=== PATIENT | female | born 1955 | race African-American/Black ===

== ENCOUNTER 2017-05-08 03:28 | Emergency (ER) | payer BC, OTHER ==
[2017-05-08] MEDS ORDERED: ASPIRIN 81 MG TABLET, CHEWABLE PO ONE (03:56)
--- NOTE | 2017-05-08 04:32 | RADIOLOGY REPORT (SQ) ---
EXAM DESCRIPTION: CHEST SINGLE VIEW CLINICAL HISTORY: chest pain COMPARISON: 08/12/2013 FINDINGS: Single frontal view of the chest. The cardiomediastinal silhouette has normal size and contour. No consolidation, pneumothorax, or pleural effusion. No displaced rib fractures identified. Upper abdominal soft tissues are unremarkable. IMPRESSION: 1. No acute pulmonary process identified.
[2017-05-08 04:34] LABS: ABSOLUTE LYMPHOCYTES (AUTO) 1.2 10^3/uL (0.5-4.7); ABSOLUTE MONOCYTES (AUTO) 0.3 10^3/uL (0.1-1.4); ABSOLUTE NEUT (AUTO) 2.1 10^3/uL (1.7-8.2); BASOPHILS % (AUTO) 0.2 % (0-2); EOSINOPHILS % (AUTO) 0.4 % (0-6); HEMATOCRIT 40.7 % (36.0-47.0); HEMOGLOBIN 13.5 g/dL (12.0-15.5); LYMPHOCYTES % (AUTO) 32.3 % (13-45); MEAN CORPUSCULAR HEMOGLOBIN 29.2 pg (27.0-33.4); MEAN CORPUSCULAR HGB CONC 33.2 g/dL (32.0-36.0); MEAN CORPUSCULAR VOLUME 88 fl (80-97); PLATELET COUNT 132 10^3/uL (150-450); RED BLOOD COUNT 4.63 10^6/uL (3.72-5.28); RED CELL DISTRIBUTION WIDTH 14.8 % (11.5-14.0); SEGMENTED NEUTROPHILS % (AUTO) 58.1 % (42-78); TOTAL CELLS COUNTED % (AUTO) 100 %; WHITE BLOOD COUNT 3.7 10^3/uL (4.0-10.5)
[2017-05-08 04:50] LABS: ALANINE AMINOTRANSFERASE 45 U/L (9-52); ALBUMIN 4.4 g/dL (3.5-5.0); ALKALINE PHOSPHATASE 54 U/L (38-126); ANION GAP 10 (5-19); ASPARTATE AMINO TRANSFERASE 30 U/L (14-36); BILIRUBIN,DIRECT 0.1 mg/dL (0.0-0.4); BILIRUBIN,TOTAL 0.7 mg/dL (0.2-1.3); BLOOD UREA NITROGEN 17 mg/dL (7-20); CALCIUM 9.7 mg/dL (8.4-10.2); CARBON DIOXIDE 25 mmol/L (22-30); CHLORIDE 106 mmol/L (98-107); CREATINE KINASE 73 U/L (30-135); GLUCOSE 81 mg/dL (75-110); SODIUM 141.4 mmol/L (137-145)
[2017-05-08 05:03] LABS: TROPONIN I < 0.012 ng/mL
--- NOTE | 2017-05-08 07:58 | ER Document Report ---
ED General - General Chief Complaint: Chest Pain Stated Complaint: CHEST PAIN Time Seen by Provider: 05/08/17 07:28 TRAVEL OUTSIDE OF THE [place] IN LAST 30 DAYS: No - HPI Patient complains to provider of: Palpitations chest heaviness Notes: Patient coming in for the above-stated symptoms. Patient has a history of atrial fibrillation. Patient states she is currently not on any anticoagulation or antiarrhythmics. Patient states since her last hospitalization when she was found to be A. fib RVR has not had any other issues. Patient states tonight have a elevated heartbeat with chest pressure mild sob with these symptoms last for ~30MIN. Patient states this occurred around 8 or 9:00. Patient denies any fevers chills nausea vomiting diarrhea. Upon my evaluation patient has been resting the ER for approximately 6-8 hours patient states that she has not had any further recurrences of the palpitations. Denies any recent travel shortness of breath with the symptoms. - Related Data Allergies/Adverse Reactions: No Known Allergies Allergy (Verified 11/24/11 18:18) Past Medical History - Social History Smoking Status: Unknown if Ever Smoked Family History: CAD, CVA, DM, Hyperlipidemia, Hypertension, Malignancy Patient has suicidal ideation: No Patient has homicidal ideation: No - Past Medical History Cardiac Medical History: Denies: Hx Atrial Fibrillation, Hx Congestive Heart Failure, Hx Coronary Artery Disease, Hx Heart Attack, Hx Hypercholesterolemia, Hx Hypertension, Hx Peripheral Vascular Disease, Hx Heart Murmur Pulmonary Medical History: Reports: Hx Pneumonia Denies: Hx Tuberculosis Neurological Medical History: Denies: Hx Cerebrovascular Accident, Hx Seizures Renal/ Medical History: Denies: Hx Peritoneal Dialysis Musculoskeltal Medical History: Denies Hx Multiple Sclerosis Psychiatric Medical History: Denies: Hx Dementia Past Surgical History: Reports: Hx Hysterectomy - partial 2004. Denies: Hx Pacemaker - Immunizations Hx Diphtheria, Pertussis, Tetanus Vaccination: No - unk date Review of Systems - Review of Systems Constitutional: No symptoms reported EENT: No symptoms reported Cardiovascular: Palpitations Respiratory: No symptoms reported Gastrointestinal: No symptoms reported Genitourinary: No symptoms reported Female Genitourinary: No symptoms reported Musculoskeletal: No symptoms reported Skin: No symptoms reported Hematologic/Lymphatic: No symptoms reported Neurological/Psychological: No symptoms reported -: Yes All other systems reviewed and negative Physical Exam - Vital signs Vitals: Resp 14 05/08/17 06:09 Interpretation: Normal - General General appearance: Appears well, Alert - HEENT Head: Normocephalic, Atraumatic Eyes: Normal Pupils: PERRL - Respiratory Respiratory status: No respiratory distress Chest status: Nontender Breath sounds: Normal Chest palpation: Normal - Cardiovascular Rhythm: Regular Heart sounds: Normal auscultation Murmur: No - Abdominal Inspection: Normal Distension: No distension Bowel sounds: Normal Tenderness: Nontender Organomegaly: No organomegaly - Back Back: Normal, Nontender - Extremities General upper extremity: Normal inspection, Nontender, Normal color, Normal ROM , Normal temperature General lower extremity: Normal inspection, Nontender, Normal color, Normal ROM , Normal temperature, Normal weight bearing. No: Александр's sign - Neurological Neuro grossly intact: Yes Cognition: Normal Orientation: AAOx4 Marilia Coma Scale Eye Opening: Spontaneous Marilia Coma Scale Verbal: Oriented Marilia Coma Scale Motor: Obeys Commands Marilia Coma Scale Total: 15 Speech: Normal Motor strength normal: LUE, RUE, LLE, RLE Sensory: Normal - Psychological Associated symptoms: Normal affect, Normal mood - Skin Skin Temperature: Warm Skin Moisture: Dry Skin Color: Normal Course - Re-evaluation Re-evalutation: 05/10/17 23:52 The patient has chest pressure with palpitations as the patient's chest pressure is not suggestive of pulmonary embolus, cardiac ischemia, aortic dissection, or other serious etiology. Given the extremely low risk of these diagnoses further testing and evaluation for these possibilities does not appear to be indicated at this time. The patient has been instructed to return if the symptoms worsen or change in any way. Patient was educated about paroxysmal atrial fibrillation. Recommend patient continue with aspirin therapy and follow-up with 1 of her local canvas marker for more likely a Holter monitor. At this time vital signs stable patient is to be a good candidate for outpatient follow-up. - Vital Signs Vital signs: Temp Pulse Resp BP Pulse Ox 97.9 F 11 L 116/79 100 05/08/17 08:01 05/08/17 08:01 05/08/17 08:00 05/08/17 08:01 - Laboratory Result Diagrams: 05/08/17 04:14 05/08/17 04:14 Laboratory results interpreted by me: 05/08/17 04:14 WBC 3.7 L RDW 14.8 H Plt Count 132 L Discharge - Discharge Clinical Impression: Rapid heart rate Dyspnea Qualifiers: Dyspnea type: unspecified Qualified Code(s): R06.00 - Dyspnea, unspecified Condition: Good Disposition: HOME, SELF-CARE Instructions: Chest Pain of Unclear Cause ([facility]), Palpitations (Irregular or Rapid Heartrate) ([facility]) Additional Instructions: Your chest x-ray EKG and laboratory findings today do not show a clear cause of why he had a rapid heart rate with shortness of breath tonight. Your vital signs at this time are stable. With your history of atrial fibrillation will be concerned she may be having intermittent episodes of atrial fibrillation or cardiac arrhythmia causing her symptoms tonight. I would highly recommend she follow-up with your primary care physician for referral to a canvas marker for possible Holter monitoring. Otherwise please avoid any statements such as caffeine or medications. Return to ER symptoms worsen. Referrals: NICKY BLANCO MD [Primary Care Provider] - Follow up in 3-5 days
[2017-05-08 08:55] VITALS: BP 116/79
--- NOTE | 2017-05-08 09:22 | EKG REPORT ---
SEVERITY:- BORDERLINE ECG - SINUS RHYTHM PROBABLE LEFT ATRIAL ABNORMALITY : Confirmed by: Purvi Tran 08-May-2017 09:21:17
== END 2017-05-08 08:55 | disposition home or self-care (01) ==
LOC: ER 03:28
DX: R00.2 Palpitations (principal); R06.00 Dyspnea, unspecified; R07.9 Chest pain, unspecified; I48.91 Unspecified atrial fibrillation
CPT/HCPCS: 36415; 71045; 80053; 82550; 82553; 84484; 85025; 93005; 93010; 99285

== ENCOUNTER 2017-08-19 21:40 | Inpatient (IN) | payer OTHER ==
[2017-08-19] MEDS ORDERED: ASPIRIN 81 MG TABLET, CHEWABLE PO ONE (21:50)
--- NOTE | 2017-08-19 22:06 | ER Document Report ---
ED General - General Chief Complaint: Palpitations Stated Complaint: CHEST PAIN Time Seen by Provider: 08/19/17 22:05 Mode of Arrival: Ambulatory Information source: Patient Notes: 61-year-old lady with past medical history of GERD who presented today for evaluation of palpitations that started this morning. According to patient she has associated chest pain as well as shortness of breath since this morning. Pain is sharp, localized to the mid back, no significant radiation, severity of symptoms is 6 out of 10. Patient also has associated shortness of breath without any leg swelling or pain. Patient has no prior history of atrial fibrillation. Patient does have strong family history of heart disease. TRAVEL OUTSIDE OF THE [place] IN LAST 30 DAYS: No - Related Data Allergies/Adverse Reactions: No Known Allergies Allergy (Verified 11/24/11 18:18) Past Medical History - General Information source: Patient - Social History Smoking Status: Never Smoker Family History: CAD, CVA, DM, Hyperlipidemia, Hypertension, Malignancy - Past Medical History Cardiac Medical History: Denies: Hx Atrial Fibrillation, Hx Congestive Heart Failure, Hx Coronary Artery Disease, Hx Heart Attack, Hx Hypercholesterolemia, Hx Hypertension, Hx Peripheral Vascular Disease, Hx Heart Murmur Pulmonary Medical History: Reports: Hx Pneumonia Denies: Hx Tuberculosis Neurological Medical History: Denies: Hx Cerebrovascular Accident, Hx Seizures Renal/ Medical History: Denies: Hx Peritoneal Dialysis Musculoskeltal Medical History: Denies Hx Multiple Sclerosis Psychiatric Medical History: Denies: Hx Dementia Past Surgical History: Reports: Hx Hysterectomy - partial 2004. Denies: Hx Pacemaker - Immunizations Hx Diphtheria, Pertussis, Tetanus Vaccination: No - unk date Review of Systems - Review of Systems Notes: REVIEW OF SYSTEMS: CONSTITUTIONAL: -fevers, -chills EENT: -eye pain, -difficulty swallowing, -nasal congestion CARDIOVASCULAR: + Chest pain, -syncope, + palpitations RESPIRATORY: -cough, + SOB GASTROINTESTINAL: -abdominal pain, -nausea, -vomiting, -diarrhea GENITOURINARY: -dysuria, -hematuria MUSCULOSKELETAL: -back pain, -neck pain SKIN: -rash or skin lesions. HEMATOLOGIC: -easy bruising or bleeding. LYMPHATIC: -swollen, enlarged glands. NEUROLOGICAL: -altered mental status or loss of consciousness, -headache, - neurologic symptoms PSYCHIATRIC: -anxiety, -depression. ALL OTHER SYSTEMS REVIEWED AND NEGATIVE. Physical Exam - Vital signs Vitals: Resp 19 08/19/17 22:03 - Notes Notes: Reviewed vital signs and nursing note as charted by RN. CONSTITUTIONAL: Alert and oriented and responds appropriately to questions HEAD: Normocephalic; atraumatic EYES: PERRL; Conjunctivae clear, sclerae non-icteric ENT: normal nose; no rhinorrhea; moist mucous membranes; pharynx without lesions noted NECK: Supple without meningismus; non-tender; no cervical lymphadenopathy, no masses CARD: Tachycardia, irregularly irregular rhythm; no murmurs, no clicks, no rubs , no gallops; symmetric distal pulses RESP: Normal chest excursion without splinting or tachypnea; breath sounds clear and equal bilaterally ABD/GI: Normal bowel sounds; non-distended; soft, no tenderness BACK: The back appears normal and is non-tender to palpation EXT: Normal ROM in all joints; non-tender to palpation; no cyanosis, no effusions, no edema SKIN: Normal color for age and race; warm; dry; good turgor; capillary refill < 2 seconds; no acute lesions noted NEURO: .Cranial nerves 3-12 intact. Motor strength 5/5 bilaterally. Sensation intact to touch bilaterally. No pronator drift. Finger to nose intact bilaterally PSYCH: The patient's mood and manner are appropriate. Grooming and personal hygiene are appropriate. Course - Re-evaluation Re-evalutation: 61-year-old here for evaluation of palpitations as well as chest pain or shortness of breath Patient noted to have new atrial fibrillation Differential diagnosis includes atrial fibrillation, ACS, PE, electrolyte abnormalities, hyperthyroidism We will obtain basic lab work including CBC, BMP, urinalysis, troponin, EKG CT PE study Electrolytes TSH panel Continuous cardiac monitoring as well as pulse oximetry We will start patient on diltiazem drip 08/19/17 23:58 Patient feels better after slowing down of her heart rate CT PE study did not reveal any evidence of acute pulmonary embolism Electrolyte within normal limits, troponin undetectable at present time TSH without any evidence of hyperthyroidism Discussed the case with admitting hospitalist, agree with admission to [facility] bed - Vital Signs Vital signs: Temp Pulse Resp BP Pulse Ox 13 101/75 99 08/19/17 23:31 08/19/17 23:31 08/19/17 23:31 - Laboratory Result Diagrams: 08/19/17 22:04 08/19/17 22:04 Laboratory results interpreted by me: 08/19/17 08/19/17 22:04 22:04 RDW 14.7 H Plt Count 129 L Glucose 143 H - EKG Interpretation by Me Additional EKG results interpreted by me: 08/19/17 22:39 EKG interpretation 10 PM Rate 137, atrial fibrillation, tachycardia Narrow QRS, QTC [address] depression in inferior lateral leads Compared to prior EKG patient has new onset atrial fibrillation Critical Care Note - Critical Care Note Comments: Critical Care Time: 35 minutes Critical care provider statement: Critical care time was exclusive of: Separately billable procedures and treating other patients and teaching time Critical care was time spent personally by me on the following activities: Blood draw for specimens, development of treatment plan with patient or surrogate, evaluation of patient's response to treatment, examination of patient , obtaining history from patient or surrogate, ordering and performing treatments and interventions, ordering and review of laboratory studies, ordering and review of radiographic studies, pulse oximetry, re-evaluation of patient's condition and review of old charts I assumed direction of critical care for this patient from another provider in my specialty: no Discharge - Discharge Clinical Impression: New onset a-fib, Tachycardia Condition: Stable Disposition: ADMITTED INPATIENT Admitting Provider: Hospitalist Unit Admitted: IMCU Referrals: NICKY BLANCO MD [Primary Care Provider] - Follow up as needed
[2017-08-19 22:16] LABS: ABSOLUTE EOSINOPHILS # (AUTO) 0.1 10^3/uL (0.0-0.6); ABSOLUTE LYMPHOCYTES (AUTO) 1.3 10^3/uL (0.5-4.7); ABSOLUTE MONOCYTES (AUTO) 0.3 10^3/uL (0.1-1.4); ABSOLUTE NEUT (AUTO) 2.8 10^3/uL (1.7-8.2); BASOPHILS % (AUTO) 0.4 % (0-2); EOSINOPHILS % (AUTO) 1.7 % (0-6); HEMATOCRIT 42.4 % (36.0-47.0); LYMPHOCYTES % (AUTO) 27.9 % (13-45); MEAN CORPUSCULAR HEMOGLOBIN 29.2 pg (27.0-33.4); MEAN CORPUSCULAR HGB CONC 32.9 g/dL (32.0-36.0); MEAN CORPUSCULAR VOLUME 89 fl (80-97); MONOCYTES % (AUTO) 7.5 % (3-13); PLATELET COUNT 129 10^3/uL (150-450); RED BLOOD COUNT 4.79 10^6/uL (3.72-5.28); RED CELL DISTRIBUTION WIDTH 14.7 % (11.5-14.0); SEGMENTED NEUTROPHILS % (AUTO) 62.5 % (42-78); TOTAL CELLS COUNTED % (AUTO) 100 %; WHITE BLOOD COUNT 4.5 10^3/uL (4.0-10.5)
[2017-08-19 22:24] LABS: INTERNATIONAL RATION (INR) 0.94; PROTHROMBIN TIME 13.1 SEC (11.4-15.4)
[2017-08-19 22:32] LABS: ALANINE AMINOTRANSFERASE 25 U/L (9-52); ALBUMIN 4.7 g/dL (3.5-5.0); ALKALINE PHOSPHATASE 61 U/L (38-126); ANION GAP 11 (5-19); ASPARTATE AMINO TRANSFERASE 36 U/L (14-36); BILIRUBIN,DIRECT 0.3 mg/dL (0.0-0.4); BILIRUBIN,TOTAL 0.8 mg/dL (0.2-1.3); BLOOD UREA NITROGEN 18 mg/dL (7-20); CALCIUM 10.1 mg/dL (8.4-10.2); CARBON DIOXIDE 29 mmol/L (22-30); CHLORIDE 102 mmol/L (98-107); CREATINE KINASE 78 U/L (30-135); GLUCOSE 143 mg/dL (75-110); POTASSIUM 3.6 mmol/L (3.6-5.0); SODIUM 142.4 mmol/L (137-145); TOTAL PROTEIN 7.9 g/dL (6.3-8.2)
[2017-08-19] MEDS ORDERED: DILTIAZEM HCL INJ 25 MG/5 ML VIAL IV ONE (22:32)
[2017-08-19] MEDS ORDERED: DILTIAZEM HCL/D5W 125 MG/125 ML RTUINJ IV PRN (22:35)
[2017-08-19] MEDS ORDERED: DILTIAZEM HCL/D5W 125 MG/125 ML RTUINJ IV ONE (22:41)
[2017-08-19 22:43] LABS: CREATINE KINASE MB 0.86 ng/mL (<4.55)
[2017-08-19 22:44] LABS: TROPONIN I < 0.012 ng/mL
--- NOTE | 2017-08-19 23:53 | RADIOLOGY REPORT (SQ) ---
EXAM DESCRIPTION: CT CHEST ANGIOGRAPHY WITHOUT THEN WITH IV CONTRAST CLINICAL HISTORY: 61 years Female, PE Comparison: None. Technique: IV contrast. Coronal and sagittal reformat. This exam was performed according to our departmental dose-optimization program, which includes automated exposure control, adjustment of the mA and/or kV according to patient size and/or use of iterative reconstruction technique.[facility]: Dose Right [facility]: CareDose [facility]: Dose Right [facility]: Teradose 4D [facility]: [employer] LIMITATIONS: None. Findings: No pulmonary embolus. No right ventricular strain. Clear lungs. Inferior neck, axillae, mediastinum, lungs, airway, lymphatics, heart, vasculature, upper abdomen, and musculoskeleton appear unremarkable. Impression: No pulmonary embolus. No acute cardiopulmonary findings.
[2017-08-19] MEDS ORDERED: MAG HYDROX/AL HYDROX/SIMETH SUSP 30 ML UDCUP PO PRN (23:58)
[2017-08-20] MEDS ORDERED: DILTIAZEM HCL/D5W 125 MG/125 ML RTUINJ IV PRN (00:01)
[2017-08-20] MEDS ORDERED: NORMAL SALINE 1000 ML 1,000 ML IV ONE ×2 (00:03→03:45)
[2017-08-20] MEDS: NORMAL SALINE 1000 ML 1,000 ML IV SCH ×2 (00:30→08:57)
[2017-08-20] MEDS ORDERED: ENOXAPARIN SODIUM INJ 60 MG/0.6 ML DISP.SYRIN SUBCUT ONE (02:05)
[2017-08-20 05:05] LABS: ABSOLUTE EOSINOPHILS # (AUTO) 0.1 10^3/uL (0.0-0.6); ABSOLUTE LYMPHOCYTES (AUTO) 1.1 10^3/uL (0.5-4.7); ABSOLUTE MONOCYTES (AUTO) 0.4 10^3/uL (0.1-1.4); ABSOLUTE NEUT (AUTO) 1.9 10^3/uL (1.7-8.2); BASOPHILS % (AUTO) 0.4 % (0-2); EOSINOPHILS % (AUTO) 2.2 % (0-6); HEMATOCRIT 34.9 % (36.0-47.0); MEAN CORPUSCULAR HGB CONC 32.8 g/dL (32.0-36.0); MEAN CORPUSCULAR VOLUME 88 fl (80-97); MONOCYTES % (AUTO) 12.6 % (3-13); PLATELET COUNT 110 10^3/uL (150-450); RED BLOOD COUNT 3.95 10^6/uL (3.72-5.28); RED CELL DISTRIBUTION WIDTH 14.4 % (11.5-14.0); SEGMENTED NEUTROPHILS % (AUTO) 52.8 % (42-78); TOTAL CELLS COUNTED % (AUTO) 100 %; WHITE BLOOD COUNT 3.5 10^3/uL (4.0-10.5)
[2017-08-20 05:06] LABS: HEMOGLOBIN 11.4 g/dL (12.0-15.5)
--- NOTE | 2017-08-20 05:09 | PDOC H&P ---
History of Present Illness Admission Date/PCP: 08/20/17 00:36 Patient complains of: Palpitations and shortness of breath History of Present Illness: DIANA ASIF is a 62 year old female without significant past medical history who presents with 2 hours of palpitations and shortness of breath occurring while at rest. Denies chest pain nausea vomiting, diaphoresis or fever. She admits previous episode several months ago which was brief and resolved spontaneously. She denies any medications, diet supplements, weight loss or heat intolerance, alcohol. In the emergency room she has a benign workup with exception to atrial fibrillation with RVR. She started on IV Cardizem and referred to the hospitalist for admission. Past Medical History Medical History: None Cardiac Medical History: Denies: Atrial Fibrillation, Congestive Heart Failure, Coronary Artery Disease, Myocardial Infarction, Hyperlipidema, Hypertension, Peripheral Vascular Disease, Heart Murmur Pulmonary Medical History: Reports: Pneumonia Denies: Tuberculosis Neurological Medical History: Denies: Seizures Psychiatric Medical History: Denies: Dementia Past Surgical History Past Surgical History: Reports: Hysterectomy - partial 2004 Denies: Pacemaker Social History Information Source: Patient Lives with: Spouse/Significant other Smoking Status: Never Smoker Frequency of Alcohol Use: None Hx Recreational Drug Use: No Drugs: None Hx Prescription Drug Abuse: No - Advance Directive Resuscitation Status: Full Code Family History Family History: CAD, CVA, DM, Hyperlipidemia, Hypertension, Malignancy Parental Family History Reviewed: Yes Children Family History Reviewed: Yes Sibling(s) Family History Reviewed.: Yes Medication/Allergy Home Medications: Cyclobenzaprine HCl [Flexeril 5 mg Tablet] 5 mg PO TID #15 tablet 03/31/15 Hydrocodone/Acetaminophen [[place] 5-325 mg Tablet] 1 tab PO Q6HP PRN #14 tablet 03/31/15 Allergies/Adverse Reactions: No Known Allergies Allergy (Verified 11/24/11 18:18) Review of Systems Constitutional: ABSENT: chills, fever(s), headache(s), weight gain, weight loss Eyes: ABSENT: visual disturbances Ears: ABSENT: hearing changes Cardiovascular: ABSENT: chest pain, dyspnea on exertion, edema, orthropnea, palpitations Respiratory: ABSENT: cough, hemoptysis Gastrointestinal: ABSENT: abdominal pain, constipation, diarrhea, hematemesis, hematochezia, nausea, vomiting Genitourinary: ABSENT: dysuria, hematuria Musculoskeletal: ABSENT: joint swelling Integumentary: ABSENT: rash, wounds Neurological: ABSENT: abnormal gait, abnormal speech, confusion, dizziness, focal weakness, syncope Psychiatric: ABSENT: anxiety, depression, homidical ideation, suicidal ideation Endocrine: ABSENT: cold intolerance, heat intolerance, polydipsia, polyuria Hematologic/Lymphatic: ABSENT: easy bleeding, easy bruising Physical Exam Vital Signs: Temp Pulse Resp BP Pulse Ox 98.1 F 73 16 91/56 L 99 08/20/17 03:02 08/20/17 03:02 08/20/17 03:02 08/20/17 03:02 08/20/17 03:02 Intake & Output 08/18/17 08/19/17 08/20/17 11:59 11:59 11:59 Weight 57.7 kg General appearance: PRESENT: no acute distress, well-developed, well-nourished Head exam: PRESENT: atraumatic, normocephalic Eye exam: PRESENT: conjunctiva pink, EOMI, PERRLA. ABSENT: scleral icterus Ear exam: PRESENT: normal external ear exam Mouth exam: PRESENT: moist, tongue midline Neck exam: ABSENT: carotid bruit, JVD, lymphadenopathy, thyromegaly Respiratory exam: PRESENT: clear to auscultation carolyne. ABSENT: rales, rhonchi, wheezes Cardiovascular exam: PRESENT: irregular rhythm, tachycardia. ABSENT: diastolic murmur, rubs, systolic murmur Pulses: PRESENT: normal dorsalis pedis pul Vascular exam: PRESENT: normal capillary refill GI/Abdominal exam: PRESENT: normal bowel sounds, soft. ABSENT: distended, guarding, mass, organolmegaly, rebound, tenderness Rectal exam: PRESENT: deferred Extremities exam: PRESENT: full ROM. ABSENT: calf tenderness, clubbing, pedal edema Neurological exam: PRESENT: alert, awake, oriented to person, oriented to place , oriented to time, oriented to situation, CN II-XII grossly intact. ABSENT: motor sensory deficit Psychiatric exam: PRESENT: appropriate affect, normal mood. ABSENT: homicidal ideation, suicidal ideation Skin exam: PRESENT: dry, intact, warm. ABSENT: cyanosis, rash Assessment & Plan - Diagnosis (1) New onset a-fib Is this a current diagnosis for this admission?: Yes Plan: IMCU admission, IV Cardizem, IV fluid challenge, full dose Lovenox, follow-up cardiac enzymes, TSH and 2D echo. (2) SOB (shortness of breath) Is this a current diagnosis for this admission?: Yes Plan: Secondary to #1 symptomatic management avoiding albuterol (3) Tachycardia Is this a current diagnosis for this admission?: Yes Plan: Secondary to #1, please see #1 - Time Time Spent: 30 to 50 Minutes
[2017-08-20] MEDS: DILTIAZEM HCL 30 MG TABLET PO SCH ×2 (05:22→11:47)
[2017-08-20 05:26] LABS: ANION GAP 7 (5-19); BLOOD UREA NITROGEN 13 mg/dL (7-20); CALCIUM 8.4 mg/dL (8.4-10.2); CARBON DIOXIDE 27 mmol/L (22-30); CHLORIDE 110 mmol/L (98-107); CREATINE KINASE 60 U/L (30-135); GLUCOSE 98 mg/dL (75-110); POTASSIUM 4.1 mmol/L (3.6-5.0); SODIUM 143.7 mmol/L (137-145)
[2017-08-20 05:33] LABS: CREATINE KINASE MB 0.86 ng/mL (<4.55)
[2017-08-20 05:37] LABS: TROPONIN I < 0.012 ng/mL
--- NOTE | 2017-08-20 07:27 | EKG REPORT ---
SEVERITY:- BORDERLINE ECG - SINUS RHYTHM BORDERLINE R WAVE PROGRESSION, ANTERIOR LEADS : Confirmed by: Darion Camejo MD 20-Aug-2017 07:26:27
--- NOTE | 2017-08-20 07:27 | EKG REPORT ---
SEVERITY:- ABNORMAL ECG - ATRIAL FIBRILLATION, V-RATE 112-165 RVR PROBABLE LVH WITH SECONDARY REPOL ABNRM : Confirmed by: Darion Camejo MD 20-Aug-2017 07:26:48
[2017-08-20] MEDS ORDERED: METOPROLOL SUCCINATE 25 MG TAB.SR.24H PO SCH (10:00)
[2017-08-20 11:15] LABS: CREATINE KINASE MB 0.74 ng/mL (<4.55)
[2017-08-20 11:17] LABS: TROPONIN I < 0.012 ng/mL
--- NOTE | 2017-08-20 13:26 | PDOC DISCHARGE SUMMARY ---
General - Admit/Disc Date/PCP Admission Date/Primary Care Provider: 08/20/17 00:36 Pricing Director: Dr. Radha Mixon primary CARE provider: Dr. Alejandro at [facility] Oral mortgage loan originator: Dr. Trey Shultz at the [facility] Discharge Date: 08/20/17 - Discharge Diagnosis (1) Atrial fibrillation with RVR Is this a current diagnosis for this admission?: Yes Summary: The patient was admitted to the hospital as she was found to have atrial fibrillation with rapid ventricular response. She was initially placed on a Cardizem drip and converted into a sinus rhythm. She was evaluated by Dr. Tran from the cardiology service who felt that she was stable to go home on low -dose metoprolol and pursue a cardiac evaluation as an outpatient. This could have been precipitated due to extreme stress due to the recent loss of her son 4 months ago. Also she could have some untreated sleep apnea. (2) Hypotension Is this a current diagnosis for this admission?: Yes Summary: Secondary to Cardizem drip. Her hypotension improved after being removed from the Cardizem drip. (3) Precipitous drop in hematocrit Is this a current diagnosis for this admission?: Yes Summary: Secondary to hemodilution. (4) Underweight Is this a current diagnosis for this admission?: Yes Summary: She is encouraged to eat a good balanced diet (5) Grief reaction Is this a current diagnosis for this admission?: Yes (6) Suspected sleep apnea Is this a current diagnosis for this admission?: Yes Summary: The patient recently lost her son 4 months ago. She is having a very difficult time coping with this. Would recommend starting an antidepressant medication as an outpatient. I am getting her an appointment to follow-up with her restaurant area director. The hopefully he can follow this in the short-term as an outpatient. (7) Full code status Is this a current diagnosis for this admission?: Yes - Additional Information Resuscitation Status: Full Code Discharge Diet: Cardiac Discharge Activity: Activity As Tolerated, Balance Activity w/Rest, Slowly Increase Activity Prescriptions: Metoprolol Succinate [Toprol Xl 25 mg Tab.sr] 12.5 mg PO Q12 #30 tab.sr.24h Home Medications: Metoprolol Succinate [Toprol Xl 25 mg Tab.sr] 12.5 mg PO Q12 #30 tab.sr.24h History of Present Illness Patient complains of: Shortness of breath and heart palpitations History of Present Illness: The patient presented to the emergency room with shortness of breath and heart palpitations. Hospital Course Hospital Course: The patient is a very pleasant 62-year-old female. She has been healthy throughout her life and has no significant past medical history. She presented to the emergency room with 2 hours of heart palpitations with associated shortness of breath occurring while at rest. She is on no medications as an outpatient. She does believe that she has had an episode like this a couple of months ago that resolved. She did lose her son in an accident 4 months ago and is had quite a bit of difficulty since that time. In the emergency room she was found to have atrial fibrillation with rapid ventricular response. She was started on a Cardizem drip and referred for admission. Shortly after starting the drip the patient became somewhat hypotensive. She received IV fluids with improvement of her blood pressure. She quickly converted to a sinus rhythm. Initially she was started on p.o. Cardizem. Cardiology was consulted for their recommendations. After being seen by cardiology this morning he does not feel that she needs to go out of the hospital on Cardizem. He also does not believe she needs an inpatient cardiac workup. He thinks she may have some untreated sleep apnea and that her significant stress has contributed as well. He recommended sending her out on Toprol-XL 12.5 mg twice daily. I had a long discussion with the patient today. She states she is not sleeping well and has been quite stressed. We did discuss initiating a possible antidepressant. I would prefer for her outpatient physician to choose the antidepressant so that he can follow her in the long-term. Her only position that she ever sees is her APPAREL DESIGNER and we are getting her an appointment with him at discharge. I have the patient's follows a [facility] in [place]. She is wanting to establish care with both a primary care provider and a mortgage loan originator in the [facility]. We have made her a new patient appointment with the [facility] [place] as well as a new patient appointment with [facility] internal medicine in [place], [place]. again cardiology did feel like she may have untreated sleep apnea and further workup needs to be obtained as an outpatient. I have discussed all of this at length with the patient. I have recommended her taking some melatonin at night to help her sleep and to talk to her APPAREL DESIGNER at her next appointment about possibly starting an antidepressant to help her manage her grief. At this point maximum hospital benefit has been reached. The patient will be discharged home today in stable condition. Physical Exam Vital Signs: Temp Pulse Resp BP Pulse Ox 97.6 F 59 L 16 96/56 L 98 08/20/17 08:13 08/20/17 08:13 08/20/17 08:13 08/20/17 11:26 08/20/17 08:13 Intake & Output 08/19/17 08/20/17 08/21/17 06:59 06:59 06:59 Intake Total 1654 Balance 1654 Weight 57.3 kg General appearance: PRESENT: no acute distress, thin, well-developed Head exam: PRESENT: atraumatic, normocephalic Eye exam: PRESENT: conjunctiva pink, EOMI, PERRLA. ABSENT: scleral icterus Mouth exam: PRESENT: moist, tongue midline Neck exam: ABSENT: carotid bruit, JVD, lymphadenopathy, thyromegaly Respiratory exam: PRESENT: clear to auscultation carolyne. ABSENT: rales, rhonchi, wheezes Cardiovascular exam: PRESENT: RRR. ABSENT: diastolic murmur, rubs, systolic murmur Pulses: PRESENT: normal dorsalis pedis pul Vascular exam: PRESENT: normal capillary refill GI/Abdominal exam: PRESENT: normal bowel sounds, soft. ABSENT: distended, guarding, mass, organolmegaly, rebound, tenderness Rectal exam: PRESENT: deferred Extremities exam: PRESENT: full ROM. ABSENT: calf tenderness, clubbing, pedal edema Musculoskeletal exam: PRESENT: ambulatory Neurological exam: PRESENT: alert, awake, oriented to person, oriented to place , oriented to time, oriented to situation, CN II-XII grossly intact. ABSENT: motor sensory deficit Psychiatric exam: PRESENT: appropriate affect, normal mood. ABSENT: homicidal ideation, suicidal ideation Skin exam: PRESENT: dry, intact, warm. ABSENT: cyanosis, rash Results Laboratory Results: 08/20/17 04:05 08/20/17 04:05 08/20/17 08/20/17 04:05 04:05 WBC 3.5 L RBC 3.95 Hgb 11.4 L D Hct 34.9 L MCV 88 MCH 29.0 MCHC 32.8 RDW 14.4 H Plt Count 110 L Seg Neutrophils % 52.8 Lymphocytes % 32.0 Monocytes % 12.6 Eosinophils % 2.2 Basophils % 0.4 Absolute Neutrophils 1.9 Absolute Lymphocytes 1.1 Absolute Monocytes 0.4 Absolute Eosinophils 0.1 Absolute Basophils 0.0 Sodium 143.7 Potassium 4.1 Chloride 110 H Carbon Dioxide 27 Anion Gap 7 BUN 13 Creatinine 0.83 Est GFR ( Amer) > 60 Est GFR (Non-Af Amer) > 60 Glucose 98 Calcium 8.4 08/20/17 08/20/17 08/20/17 04:05 04:05 04:05 Creatine Kinase 60 CK-MB (CK-2) 0.86 Troponin I < 0.012 NT-Pro-B Natriuret Pep 148 08/20/17 08/20/17 10:15 10:15 Creatine Kinase 66 CK-MB (CK-2) 0.74 Troponin I < 0.012 NT-Pro-B Natriuret Pep Qualifiers - * PATIENT BEING DISCHARGED WITH ANY OF THE FOLLOWING DIAGNOSIS: No Plan Time Spent: Greater than 30 Minutes
[2017-08-20 13:37] VITALS: BP 99/61
--- NOTE | 2017-08-20 20:04 | PDOC CONSULTATION ---
Consultation Consult Date: 08/20/17 Attending physician:: LADAN HERNANDEZ Consult reason:: Atrial fibrillation History of Present Illness Admission Date/PCP: 08/20/17 00:36 Patient complains of: Palpitations History of Present Illness: DIANA ASIF is a 62 year old female without significant past medical history who presents with 2 hours of palpitations and shortness of breath occurring while at rest. Denies chest pain nausea vomiting, diaphoresis or fever. She admits previous episode several months ago which was brief and resolved spontaneously. She denies any medications, diet supplements, weight loss or heat intolerance, alcohol. In the emergency room she has a benign workup with exception to atrial fibrillation with RVR. She started on IV Cardizem and referred to the hospitalist for admission. This history obtained by the hospitalist was reviewed and confirmed with the patient. Patient describes having intermittent palpitations, which she describes as rapid heartbeat happening off and on for last 2 months. They are usually transient and not associated with significant symptoms except for slight dizziness and shortness of breath. Last night episodes was somewhat more prolonged and did not resolve spontaneously. Patient was started on Cardizem drip which controlled her heart rate but subsequently patient was noted to have low blood pressure for which she received IV fluid boluses. Cardizem drip was stopped. This morning she had p.o. Cardizem at low-dose 30 mg. Patient however is thin built and rather tall therefore felt that beta-kristina may be better suited. Patient was therefore started on metoprolol succinate 12.5 mg p.o. twice daily. Patient did want to go home and felt that it was reasonably safe for patient to be discharged home as she was without any chest pain or any shortness of breath. She was told that provided she was able to ambulate safely , she could be discharged with close cardiology follow-up with [facility] as an outpatient. Past Medical History Cardiac Medical History: Denies: Atrial Fibrillation, Congestive Heart Failure, Coronary Artery Disease, Myocardial Infarction, Hyperlipidema, Hypertension, Peripheral Vascular Disease, Heart Murmur Pulmonary Medical History: Reports: Pneumonia Denies: Tuberculosis Neurological Medical History: Denies: Seizures Psychiatric Medical History: Denies: Dementia Past Surgical History Past Surgical History: Reports: Hysterectomy - partial 2004 Denies: Pacemaker Social History Information Source: Patient Lives with: Spouse/Significant other Smoking Status: Never Smoker Frequency of Alcohol Use: None Hx Recreational Drug Use: No Drugs: None Hx Prescription Drug Abuse: No - Advance Directive Resuscitation Status: Full Code Family History Family History: CAD, CVA, DM, Hyperlipidemia, Hypertension, Malignancy Parental Family History Reviewed: Yes Children Family History Reviewed: Yes Sibling(s) Family History Reviewed.: Yes Medication/Allergy Home Medications: Metoprolol Succinate [Toprol Xl 25 mg Tab.sr] 12.5 mg PO Q12 #30 tab.sr.24h Allergies/Adverse Reactions: Penicillins Allergy (Verified 08/20/17 09:45) Review of Systems Review of Systems: Please see history of present illness and past medical history as wall. Constitutional: No fever or chills reported. Head : No recent chronic headaches, recent head injury. Eyes: No recent eye pain, diplopia, redness, discharge, acute visual changes. Ears: No recent chronic ear pain, acute hearing loss, ear discharge. Oral cavity: No recent ulcerations, bleeding, oral cavity discomfort. Neck: No recent acute neck pain reported. Hematologic: No recent easy bruising or bleeding. Lymphatic: No recent lymph node enlargement reported. Cardiovascular system review: See history of present illness. Respiratory system review: No hemoptysis or blood clots in the lungs reported. Mild Shortness of breath on exertion, occasional palpitations and dizziness Gastrointestinal system review: Negative for any recent acute hematemesis, melena. Genitourinary system review: No recent acute or chronic hematuria, flank pain, UTI etc. reported. Skin system review: Negative for any recent abnormal bruising, no rash, no pruritus reported. Neurologic: No prior history of strokes, mini strokes, seizure disorder. Psychologic: No history of major psychosis or major depression reported. Musculoskeletal: Minor aches and pains reported. No acute joint swelling reported. Endocrine: No recent polyuria, polydipsia, recent heat or cold intolerance. Physical Exam Vital Signs: Temp Pulse Resp BP Pulse Ox 97.6 F 59 L 16 91/56 L 98 08/20/17 13:00 08/20/17 13:00 08/20/17 13:00 08/20/17 13:00 08/20/17 13:00 Intake & Output 08/19/17 08/20/17 08/21/17 06:59 06:59 06:59 Intake Total 1654 Balance 1654 Weight 57.3 kg Exam: GENERAL: well-nourished and in no acute distress. Alert and oriented x3 HEAD: Atraumatic, normocephalic. EYES: Pupils equal round and reactive to light, extraocular movements intact, sclera anicteric, conjunctiva are normal. ENT: TMs normal, nares patent, oropharynx clear without exudates. Moist mucous membranes. No oral ulcerations or bleeding gums noted NECK: supple without lymphadenopathy. Trachea is central. No cervical or axillary lymphadenopathy noted. Carotids are 2+, JVD WNL LUNGS: Respiration seems nonlabored, no significant accessory muscle action noted. Breath sounds clear to auscultation bilaterally and equal noted. No wheezes rales or rhonchi noted. No significant dullness noted on percussion. CHEST: Palpation of the chest wall shows no significant chest wall tenderness. 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 ABDOMEN: Soft, no significant tenderness appreciated, normoactive bowel sounds. No guarding, no rebound. No rigidity noted . No masses appreciated. EXTREMITIES: Pedal pulses are 1-2+, no calf tenderness noted. No clubbing or cyanosis. negative pedal edema noted NEUROLOGICAL: Focused neurological exam showed no significant neurologic deficit. Normal speech, no focal weakness appreciated. PSYCH: Normal mood, normal affect. Judgment and insight within normal limits. SKIN: No significant ecchymosis, skin is noted to be warm. MUSCULOSKELETAL EXAM: No significant acute joint swelling noted. Results Laboratory Results: 08/20/17 04:05 08/20/17 04:05 08/20/17 08/20/17 04:05 04:05 WBC 3.5 L RBC 3.95 Hgb 11.4 L D Hct 34.9 L MCV 88 MCH 29.0 MCHC 32.8 RDW 14.4 H Plt Count 110 L Seg Neutrophils % 52.8 Lymphocytes % 32.0 Monocytes % 12.6 Eosinophils % 2.2 Basophils % 0.4 Absolute Neutrophils 1.9 Absolute Lymphocytes 1.1 Absolute Monocytes 0.4 Absolute Eosinophils 0.1 Absolute Basophils 0.0 Sodium 143.7 Potassium 4.1 Chloride 110 H Carbon Dioxide 27 Anion Gap 7 BUN 13 Creatinine 0.83 Est GFR ( Amer) > 60 Est GFR (Non-Af Amer) > 60 Glucose 98 Calcium 8.4 05/23/18 05/23/18 05/23/18 04:05 04:05 04:05 Creatine Kinase 60 CK-MB (CK-2) 0.86 Troponin I < 0.012 NT-Pro-B Natriuret Pep 148 08/20/17 08/20/17 10:15 10:15 Creatine Kinase 66 CK-MB (CK-2) 0.74 Troponin I < 0.012 NT-Pro-B Natriuret Pep EKG Comments: Initial EKG shows atrial fibrillation with rapid ventricular response. Subsequent rhythm strip showed controlled ventricular response and EKG this morning showed sinus rhythm. Assessment & Plan - Diagnosis (1) Atrial fibrillation with RVR Is this a current diagnosis for this admission?: Yes (2) SOB (shortness of breath) Is this a current diagnosis for this admission?: Yes (3) Suspected sleep apnea Is this a current diagnosis for this admission?: Yes (4) Underweight Is this a current diagnosis for this admission?: Yes - Notes Notes: Atrial fibrillation with RVR: Paroxysmal atrial fibrillation. Duration very short, less than 8 hours. Do not feel need for chronic anticoagulation as chads score very low and almost 0. For rate control, recommend beta-kristina, metoprolol succinate 12.5 mg p.o. twice daily should be satisfactory statin dose. Patient advised event monitoring as an outpatient. Shortness of breath: Most likely related to atrial fibrillation. Currently resolved. Suspected sleep apnea: Patient's oropharyngeal exam, history of difficulty falling asleep, staying asleep and also history of snoring suggest that patient may indeed have underlying sleep apnea syndrome. Discussed association of sleep apnea syndrome with atrial fibrillation. Patient encouraged to schedule a sleep study as an outpatient. Underweight: Recommend TSH and thyroid functioning assessment. Patient encouraged to improve calorie intake. - Time Time Spent: 30 to 50 Minutes - CODE STATUS was discussed, patient remains full code. Surrogate decision-maker patient's . Multiple medical problems were addressed. More than 50% of the time spent coordinating care, discussing management plans with involved caregivers. Management plans discussed with involved personnels. Medical decision making was of moderate to high complexity , patient's has multiple comorbidities. Medications reviewed and adjusted accordingly: Yes
== END 2017-08-20 14:10 | disposition home or self-care (01) | DRG 309 ==
LOC: ER 21:40 → EH 08-20 00:36 → 3W 08-20 02:33
PROVIDERS: ADMIT Internal Medicine; ATTEND Internal Medicine
DX: I48.0 Paroxysmal atrial fibrillation (principal); R71.0 Precipitous drop in hematocrit; Z68.1 Body mass index [BMI] 19.9 or less, adult; R07.9 Chest pain, unspecified; K21.9 Gastro-esophageal reflux disease without esophagitis; R00.0 Tachycardia, unspecified; I95.9 Hypotension, unspecified; R63.6 Underweight; F43.20 Adjustment disorder, unspecified; G47.30 Sleep apnea, unspecified
CPT/HCPCS: 36415; 71275; 80048; 80053; 82550; 82553; 83735; 83880; 84443; 84484; 85025; 85610; 93005; 93010; 96365; 96366; 99291; J1650; J3490; J7030